=== PATIENT | female | born 1940 | race Caucasian/White ===

== ENCOUNTER → 2018-06-26 | Outpatient (CLI) | payer MEDICARE, OTHER ==
[~2018-06-26] MED LIST: IOPAMIDOL 370 MG/ML 200 ML INFUS..BTL INJ ONE; SODIUM CHLORIDE 0.9% 250ML 500 ML ONE; SODIUM CHLORIDE 0.9% 50ML 50 ML ONE
[2018-06-26 10:33] LABS: CREATININE, SERUM 0.98 mg/dL (0.57-1.11)
--- NOTE | 2018-06-26 12:36 | Diagnostic Imaging Report ---
EXAM: CT Abdomen and Pelvis WITH contrast INDICATION: \[id number] \S\[id number] \S\ELEVATED LIVER FUNCTION COMPARISON: None. TECHNIQUE: Abdomen and pelvis were scanned utilizing a multidetector helical scanner from the lung base to the pubic symphysis after administration of IV contrast. Coronal and sagittal reformations were obtained. Routine protocol was performed. Scan was performed when during portal venous phase. IV CONTRAST: 100 mL of Isovue-370 ORAL CONTRAST: Water COMPLICATIONS: None RADIATION DOSE: Total DLP: 504.36 mGy*cm Estimated effective dose: (DLP x 0.015 x size factor) mSv CTDIvol has been reviewed. It is below the limits set by the Radiation Protocol Committee (RPC). FINDINGS: LINES and TUBES: None. LOWER THORAX: Unremarkable HEPATOBILIARY: No focal hepatic lesions. Moderate intrahepatic biliary dilatation. The common bile duct is also distended proximally up to 1.2 cm which tapers from mid to distal portion. GALLBLADDER: Slightly hyperdense contents, likely sludge. No wall thickening. SPLEEN: No splenomegaly. PANCREAS: No focal masses. Proximal pancreatic duct is minimally distended up to 4 mm. ADRENALS: No adrenal nodules KIDNEYS/URETERS: Kidneys enhance symmetrically. No hydronephrosis. No cystic or solid mass lesions. Bilateral areas of cortical thinning. Bilateral subcentimeter hypodensities which are too small to characterize. No stones. GI TRACT: No abnormal distention, wall thickening, or evidence of bowel obstruction. Appendix is not clearly visualized. Small hiatal hernia. PELVIC ORGANS/BLADDER: Hysterectomy. Bladder is unremarkable. Pelvic phlebolith. LYMPH NODES: No lymphadenopathy. Nonspecific subcentimeter retroperitoneal lymph nodes. For example 0.7 cm para-aortic and 0.5 cm aortocaval lymph nodes (series 2, image 46). VESSELS: Unremarkable. Indeterminate induration, encasing the midportion of SMA (series 2, image 32). PERITONEUM / RETROPERITONEUM: No free air or fluid. BONES: Generalized demineralization. Mottled appearance of the iliac bones. SOFT TISSUES: Unremarkable. IMPRESSION: 1. Moderate intrahepatic biliary dilatation with distention of the proximal common bile duct. Obstructive distal common bile duct lesion or calculus is suspected. There is also minimal proximal pancreatic ductal dilatation. Other possibilities are pancreatic head or ampullary lesions. Recommend for further evaluation with MRCP or endoscopic ultrasound. 2. Hyperdense gallbladder contents, likely sludge. 3. Indeterminate induration or fibrosis encasing the mid superior mesenteric artery. Recommend attention on follow-up examination. Signed by: Dr. Gerardo Church MD on 06/26/2018 12:32 PM
== END ==
LOC: CT 09:32
PROVIDERS: ATTEND Family Medicine
DX: R94.5 Abnormal results of liver function studies (principal)
CPT/HCPCS: 36415; 74177; 82565; 84520; J7050; Q9967

== ENCOUNTER → 2018-07-12 | Outpatient (CLI) | payer MEDICARE, OTHER ==
[~2018-07-12] MED LIST changes: +GADOBENATE DIMEGLUMINE 1 ML IV ONE; -IOPAMIDOL 370 MG/ML 200 ML INFUS..BTL INJ ONE; -SODIUM CHLORIDE 0.9% 250ML 500 ML ONE; -SODIUM CHLORIDE 0.9% 50ML 50 ML ONE
[2018-07-12 07:35] LABS: CREATININE, SERUM 0.92 mg/dL (0.57-1.11)
--- NOTE | 2018-07-12 11:37 | Diagnostic Imaging Report ---
PROCEDURE: MRCP WITH AND WITHOUT CONTRAST TECHNIQUE: Multisequence, multiplanar MRI/MRCP of the abdomen before and after the intravenous administration of 12 mL of multiple enhanced contrast. Axial T1 and T2 weighted images were performed as well as coronal T2 and FIESTA images. Diffusion weighted images were performed. Dynamic 3-D GRE images were obtained. Heavily T2 weighted MRCP images were provided. COMPARISON: CT of the abdomen and pelvis from 06/26/2018 INDICATIONS: Abnormal findings on prior CT. Abnormal liver function tests. FINDINGS: Limited examination due to significant motion artifact. LIVER: No hepatic signal abnormality. No focal hepatic lesions. BILIARY: There is moderate intrahepatic and extrahepatic biliary dilatation with abrupt narrowing of the common bile duct at its midportion. At the level of the ductal narrowing, there is thickening and enhancement of the common bile duct wall (best seen series 9, image 177). No gallstones are visualized. There is hyperdense bile in the gallbladder. PANCREAS: There is a diffuse irregular pancreatic ductal dilatation in the pancreatic body and tail. There is abrupt narrowing of the pancreatic duct at the level of the pancreatic head (series 6, image 22). No definite mass lesion is identified. An 8mm cystic-appearing lesion in the pancreatic neck (series 6, image 20) demonstrates clear connection with the main pancreatic duct. Anteriorly to this, a second cystic lesion in the pancreatic neck (series 6, and 20) measures 3 mm and demonstrates probable connection to the pancreatic duct. There is a third possible cystic lesion in the pancreatic head (series 6, image 24) which measures 4 mm. It is unclear whether this communicates with the main pancreatic duct. These cystic lesions do not demonstrate suspicious enhancement or solid components. SPLEEN: No splenomegaly. ADRENALS: No nodules. KIDNEYS: No hydronephrosis in the imaged portion of the kidneys. 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 PERITONEUM / RETROPERITONEUM: No upper abdominal free fluid. LYMPH NODES: No upper abdominal lymphadenopathy. VESSELS: Moderate atherosclerotic changes of the aorta and its branches. BONES AND SOFT TISSUES: Unremarkable. IMPRESSION: Limited examination due to significant motion artifact. 1. Moderate intrahepatic and extrahepatic biliary dilatation with a stricture in the midportion of the common bile duct. I suspect a malignant stricture. Recommend GI consultation for consideration of ERCP. 2. Mild irregular pancreatic ductal dilatation with abrupt narrowing at the level of the pancreatic head. This may represent an inflammatory or malignant stricture. No definite mass is identified. Recommend followup imaging in 3 months to determine stability. 3. No cholelithiasis or choledocholithiasis 4. Small pancreatic cystic lesions which measure up to 8 mm. At least one of these demonstrates clear communication with the main pancreatic duct. These most likely represent intraductal papillary mucinous neoplasm (IPMN). Recommend attention on followup imaging. Dictated by: Ezra Ag M.D. on 07/12/2018 at 11:43 Electronically approved by: Ezra Ag M.D. on 07/12/2018 at 11:43
== END ==
LOC: MRI 07:01
PROVIDERS: ATTEND Family Medicine
DX: K83.1 Obstruction of bile duct (principal)
CPT/HCPCS: 36415; 74183; 82565; 84520